=== PATIENT | male | born 1985 | race Caucasian/White ===

== ENCOUNTER 2022-05-12 21:16 | Emergency (ER) | payer SELFPAY ==
--- OUTSIDE RECORDS SUMMARY | 2022-05-12 21:19 | XMS REPORT | Continuity of Care Document ---
:1985 Author Organization [facility] t Address [address] [place] [address] [address] [place] [address] Care Team Providers Name Role Phone PCP, PATIENT DOES NOT HAVE A Primary Care Physician Unavaila ROWAN Kay Attending Clinician Unavailable Rowan Marino Attending Clinician ROWAN ROCK Admitting Clinician Unavailable Payers Payer Name Policy Type Policy Number Effective Date Expiration Date S ource ALL [employer] [id number] 2021 00:00:00 Problems Condition Condition Condition Status Onset Resolution Last Treating Co mments Source Name Details Category Date Date Treatment Clinician Date No known No known Disease Unive rs active active ity of problems problems [facility] Allergies, Adverse Reactions, Alerts Allergy Allergy Status Severity Reaction(s) Onset Inactive Treating Comm ents Source Name Type Date Date Clinician NO KNOWN Drug Active Univers ALLERGIE Class ity of S [facility] Social History Social Habit Start Date Stop Date Quantity Comments Source Exposure to Not sure [facility] SARS-CoV-2 (event) Medica l Branch Sex Assigned At [birth year] [facility] 00:00:00 00:00:00 [facility] Smoking Status Start Date Stop Date Source Unknown if ever smoked [facility] Medications Ordered Filled Start Stop Current Ordering Indication Dosage Frequency Signature Comments Components Source Medication Medication Date Date Medication? Clinician (SIG) Name Name methocarbam No 500mg 500 mg, U nivers oL 09-10 Oral, ity of (ROBAXIN) 20:00: 18:54 [place]CE, [place] 500 [place] :00 dose, On Medic al mg [place] 09/10/21 at 1400, Routine HYDROcodone 2021- No 1{tbl} 1 tablet, Univers -acetaminop 09-10 Oral, ity of hen (NORCO 20:00: 18:54 ONCE, 1 Gokul as 5) 5-325 mg 00 :00 dose, On Medi willis tablet 1 [place] tablet 09/10/21 at 1400, JONATHON methocarbam Yes [id number] 500mg Take 1 Univers oL 500 mg - tablet by ity o f tablet 00:00: mouth 4 [place] 00 (four) Medical times Branch daily as needed for Pain (scale 4-6). naproxen Yes [id number] 500mg Take 1 Un jennifer (NAPROSYN) -23 tablet by ity of 500 mg 00:00: mouth 2 [place] tablet 00 (two) Medical times Branch daily with meals. traMADoL 50 Yes [id number] 50mg Take 1 Univ ers mg tablet - tablet by ity o f 00:00: mouth [place] 00 every 6 Medical (six) Branch hours as needed for Pain (scale 7-10). Indication s: acute pain Vital Signs Vital Name Observation Time Observation Value Comments Source Systolic blood 2021-09-10 21:26:16 140 mm[Hg] [facility] Diastolic blood 2021-09-10 21:26:16 66 mm[Hg] [facility] Heart rate 2021-09-10 21:26:16 67 /min [facility] Respiratory rate 2021-09-10 21:26:16 15 /min [facility] Oxygen saturation in 2021-09-10 21:26:16 100 /min [facility] Arterial blood by [facility] Pulse oximetry Branch Body temperature 2021-09-10 17:55:00 36.83 [place] [facility] Body weight 2021-09-10 17:55:00 79.379 kg [facility] Procedures Procedure Date / Time Performed Performing Clinician Yanni e XR CERVICAL SPINE 2 2021-09-10 20:32:27 Rowan Rock [facility] VW [facility] Branch XR SHOULDER 2+ VW 2021-09-10 20:32:27 Rowan Rock [facility] NOTICE OF PRIVACY 2021-09-10 17:48:40 Doctor Unassigned, No Univ [facility] Name Medical Branch CONSENT/REFUSAL FOR 2021-09-10 17:48:27 [facility] Name Medical Branch TREATMENT Encounters Start End Encounter Admission Attending Care Care Encounter Source Date/Time Date/Time Type Type Clinicians Facility Department ID 2021-09-10 2021-09-10 Emergency X WILLIAM ROCK ERT [id number] Univers 11:58:00 15:30:00 ROWAN reynolds [facility] 2021-09-10 2021-09-10 Emergency WILLIAM Rock [id number] Univers 11:58:00 15:30:00 Rowan Mathews CORDELL [id number] i [facility] [id number] [facility] [id number] [facility] 084 Branch Results This patient has no known results.
[2022-05-12] MEDS ORDERED: ASPIRIN 81 MG CHEWABLE TABLET ONE (21:53)
--- NOTE | 2022-05-12 22:03 | RAD REPORT ---
EXAM DESCRIPTION: RAD - Chest Single View - 05/12/2022 9:46 pm CLINICAL HISTORY: CHEST PAIN Chest pain. COMPARISON: No comparisons FINDINGS: Portable technique limits examination quality. The lungs are grossly clear. The heart is normal in size. No displaced fractures.Mild thoracic dextro scoliosis. IMPRESSION: No acute intrathoracic process suspected.
[2022-05-12 22:18] LABS: Hematocrit 42.8 % (39.6-49.0); Lymphocytes % 34.4 % (15.3-44.8); MCV 91.1 fL (80-100); MPV 7.6 fL (7.6-11.3)
[2022-05-12 22:25] LABS: Potassium 4.1 mmol/L (3.5-5.1); Thyroid Stimulating Hormone 1.69 uIU/mL (0.360-3.740); Troponin High Sensitivity 3.6 pg/mL (<58.9)
--- NOTE | 2022-05-12 22:41 | ER ---
Nurse's Notes [facility] Name: Reed Og Age: 36 yrs Sex: Male : 1985 Arrival Date: 05/12/2022 Time: 21:19 Bed 2 Private MD: Diagnosis: Elevated blood pressure reading;Intermittent palpitations;Episodic lightheadedness;Medication non-compliance;Chest pressure Presentation: 05/12 21:21 Chief complaint: Intermittent dizziness and headache x 1 week, palpitations and chest hb pressure x 2 days. Has not taken his HTN medication in several months. Coronavirus screen: At this time, the client does not indicate any symptoms associated with coronavirus-19. Ebola Screen: No symptoms or risks identified at this time. Risk Assessment: Do you want to hurt yourself or someone else? Patient reports no desire to harm self or others. Onset of symptoms was May 06, 2022. 21:21 Method Of Arrival: Ambulatory hb 21:21 Acuity: CACHORRO 3 hb 22:01 Initial Sepsis Screen: Does the patient meet any 2 criteria? No. Patient's initial aa9 sepsis screen is negative. Does the patient have a suspected source of infection? No. Patient's initial sepsis screen is negative. Historical: - Allergies: 21:23 No Known Allergies; hb - PMHx: 21:23 Hypertensive disorder; hb - Immunization history:: Adult Immunizations up to date. - Social history:: Smoking status: Patient/guardian denies using tobacco. Screenin:00 Abuse screen: Denies threats or abuse. Denies injuries from another. Nutritional aa9 screening: No deficits noted. Tuberculosis screening: No symptoms or risk factors identified. Fall Risk None identified. Assessment: 21:35 General: Appears uncomfortable, Behavior is calm, cooperative. Pain: Denies pain. aa9 Neuro: Level of Consciousness is awake, alert, obeys commands, Oriented to person, place, time, situation, Reports dizziness. Cardiovascular: Patient's skin is warm and dry. Respiratory: Airway is patent Respiratory effort is even, unlabored, Respiratory pattern is regular. 22:40 Reassessment: Patient is alert, oriented x 3, equal unlabored respirations, skin aa9 warm/dry/pink. General: Appears in no apparent distress. comfortable, Behavior is calm, cooperative, quiet. Pain: Denies pain. Neuro: Level of Consciousness is awake, alert, obeys commands, Oriented to person, place, time, situation. Cardiovascular: Patient's skin is warm and dry. Respiratory: Airway is patent Respiratory effort is even, unlabored, Respiratory pattern is regular, symmetrical. Vital Signs: 21:21 BP 132 / 78; Pulse 59; Resp 16; Temp 98.1; Pulse Ox 100% on R/A; Weight 72.57 kg; hb Height 5 ft. 9 in. (175.26 cm); Pain 3/10; 21:30 BP 127 / 79; Pulse 58; Resp 16 S; Pulse Ox 99% on R/A; aa9 21:45 BP 114 / 73; Pulse 63; Resp 16 S; Pulse Ox 99% on R/A; Pain 0/10; aa9 22:15 BP 115 / 76; Pulse 54; Resp 16 S; Pulse Ox 98% on R/A; aa9 22:48 BP 115 / 71; Pulse 56; Resp 16 S; Pulse Ox 98% on R/A; aa9 21:21 Body Mass Index 23.63 (72.57 kg, 175.26 cm) hb ED Course: 21:19 Patient arrived in ED. mr 21:19 Bailey Nolen MD is Attending Physician. sd2 21:23 Triage completed. hb 21:23 Arm band placed on. hb 21:24 Hermelindo Daly, RN is Primary Nurse. as6 21:40 Inserted saline lock: 20 gauge in left antecubital area, using aseptic technique. Blood aa9 collected. 21:47 XRAY Chest (1 view) In Process Unspecified. EDMS 21:59 Patient has correct armband on for positive identification. Side rails up X2. Adult w/ aa9 patient. Door closed. 22:48 No provider procedures requiring assistance completed. aa9 22:48 IV discontinued, intact, bleeding controlled, No redness/swelling at site. Pressure aa9 dressing applied. Administered Medications: 21:55 Drug: Aspirin Chewable Tablet 324 mg Route: PO; aa9 22:49 Follow up: Response: No adverse reaction aa9 Medication: 22:01 VIS not applicable for this client. aa9 Outcome: 22:41 Discharge ordered by . sd2 22:48 Discharged to home ambulatory, with family. aa9 22:48 Condition: stable 22:48 Discharge instructions given to patient, significant other, Instructed on discharge instructions, follow up and referral plans. Demonstrated understanding of instructions, follow-up care. 22:51 Patient left the ED. aa9 Signatures: Dispatcher [employer] Melissa HernandezJanette, RN RN Hermelindo Daly, RN RN as6 Bailey Nolen MD MD sd2 Leslie Rodrigues RN RN aa9 Corrections: (The following items were deleted from the chart) :23 21:23 PMHx: Hypothyroidism; hb hb 22: 21:56 General: Appears uncomfortable, Behavior is calm, cooperative, aa9 aa9 : 21:56 Pain: Denies pain. aa9 aa9 : 21:56 Cardiovascular: Patient's skin is warm and dry. aa9 aa9 22: 21:56 Respiratory: Airway is patent Respiratory effort is even, unlabored, Respiratory aa9 pattern is regular, aa9 : 21:56 Neuro: Level of Consciousness is awake, alert, obeys commands, Oriented to aa9 person, place, time, situation, Reports dizziness, aa9
--- NOTE | 2022-05-12 22:41 | EDPHYS ---
Physician Documentation [facility] Name: Reed Og Age: 36 yrs Sex: Male : 1985 Arrival Date: 05/12/2022 Time: 21:19 Bed 2 Private MD: ED Physician Bailey Nolen HPI: 05/12 21:32 This 36 yrs old Male presents to ER via Ambulatory with complaints of Palpitations, sd2 High Blood Pressure, Dizziness. 21:32 36-year-old male with a history of hypertension and hyperlipidemia presents with chief sd2 complaint of high blood pressure and chest pressure. He reports he has been off of his blood pressure medications for many months due to moving here from [place] and running out of his medications. He reports he is actually planning on moving back to [place] this upcoming week but wanted to make sure everything was okay due to starting to have this chest pressure with intermittent episodes of palpitations and lightheadedness over the past week. He reports his blood pressure has been as high as the high 150s systolic. His heart rate has also ranged up to 110. He also reports increased stress at home recently. No prior cardiac history, recent travel or leg edema. No prior history of blood clots.. Historical: - Allergies: 21:23 No Known Allergies; hb - PMHx: 21:23 Hypertensive disorder; hb - Immunization history:: Adult Immunizations up to date. - Social history:: Smoking status: Patient/guardian denies using tobacco. ROS: 21:32 Constitutional: Negative for fever, chills, and weight loss, Eyes: Negative for injury, sd2 pain, redness, and discharge, Cardiovascular: Negative for chest pain and edema. Positive for chest pressure and palpitations. Respiratory: Positive for shortness of breath, Negative for cough, wheezing. Abdomen/GI: Negative for abdominal pain, nausea, vomiting, diarrhea. MS/Extremity: Negative for injury and deformity, Skin: Negative for injury, rash, and discoloration, Neuro: Negative for headache, numbness and tingling. Exam: 21:32 Constitutional: This is a well developed, well nourished patient who is awake, alert, sd2 and in no acute distress. Head/Face: Normocephalic, atraumatic. Eyes: EOMI, normal conjunctiva bilaterally Chest/axilla: Normal chest wall appearance and motion. Nontender with no deformity. Cardiovascular: Regular rate and rhythm with a normal S1 and S2. No gallops, murmurs, or rubs. 2+ distal pulses. Respiratory: Lungs have equal breath sounds bilaterally, clear to auscultation and percussion. No rales, rhonchi or wheezes noted. No increased work of breathing, no retractions or nasal flaring. Abdomen/GI: Soft, non-tender, with normal bowel sounds. No guarding or rebound. No evidence of tenderness throughout. Skin: Warm, dry with normal turgor. Normal color with no rashes, no lesions, and no evidence of cellulitis. MS/ Extremity: Pulses equal, no cyanosis. Neurovascular intact. Full, normal range of motion. Ambulatory without difficulty. Psych: Awake, alert, with orientation to person, place and time. Behavior, mood, and affect are within normal limits. 21:36 ECG was reviewed by the Attending Physician. Sinus bradycardia, rate 53, no STEMI sd2 criteria or ST-T wave changes Vital Signs: 21:21 BP 132 / 78; Pulse 59; Resp 16; Temp 98.1; Pulse Ox 100% on R/A; Weight 72.57 kg; hb Height 5 ft. 9 in. (175.26 cm); Pain 3/10; 21:30 BP 127 / 79; Pulse 58; Resp 16 S; Pulse Ox 99% on R/A; aa9 21:45 BP 114 / 73; Pulse 63; Resp 16 S; Pulse Ox 99% on R/A; Pain 0/10; aa9 22:15 BP 115 / 76; Pulse 54; Resp 16 S; Pulse Ox 98% on R/A; aa9 22:48 BP 115 / 71; Pulse 56; Resp 16 S; Pulse Ox 98% on R/A; aa9 21:21 Body Mass Index 23.63 (72.57 kg, 175.26 cm) hb MDM: 21:24 Patient medically screened. sd2 21:32 Differential diagnosis: Differential diagnosis includes but is not limited to: ACS, sd2 DVT/PE, pneumothorax, dissection, musculoskeletal, anxiety, anemia, electrolyte abnormality, pneumonia, CHF, COPD among others. Data reviewed: vital signs, nurses notes. 22:37 Data reviewed: lab test result(s), radiologic studies. Counseling: I had a detailed sd2 discussion with the patient and/or guardian regarding: the historical points, exam findings, and any diagnostic results supporting the discharge/admit diagnosis, lab results, radiology results, the need for outpatient follow up, to return to the emergency department if symptoms worsen or persist or if there are any questions or concerns that arise at home. Medical screen evaluation completed. [facility] emergency medical condition absent. ED course: Labs and imaging reviewed. Trop neg. EKG with no ischemic changes. Thyroid function studies normal. No events on telemetry. BP has remained well controlled throughout stay. Pt with minimal symptoms. Low risk for ACS. I am very reluctant to restart the patient's BP medications at this time as he was on a fairly high dose of Losartan at 50 mg. BP currently 115/76. No indication for BP treatment at this time. Concern if patient is restarted on medication, he will bottom out his pressure. Planning to drive back to [place] this week and followup with his doctors there. Advised pt to keep daily BP log and follow up. Pt and in agreement and verbalize understanding of discharge plan and strict return precautions. . 05/12 21:32 Order name: Basic Metabolic Panel; Complete Time: 22:31 sd05/12 21:32 Order name: CBC with Diff; Complete Time: 22:31 05/12 21:32 Order name: Magnesium; Complete Time: 22:31 05/12 21:32 Order name: NT PRO-BNP; Complete Time: 22:31 05/12 21:32 Order name: Troponin HS; Complete Time: 22:31 05/12 21:32 Order name: TSH; Complete Time: 22:31 05/12 21:32 Order name: XRAY Chest (1 view); Complete Time: 22:14 sd05/12 21:32 Order name: EKG; Complete Time: 21:33 sd05/12 21:32 Order name: Cardiac monitoring; Complete Time: 21:41 05/12 21:32 Order name: EKG - Nurse/Tech; Complete Time: 21:41 05/12 21:32 Order name: IV Saline Lock; Complete Time: 21:55 sd05/12 21:32 Order name: Labs collected and sent; Complete Time: 21:55 05/12 21:32 Order name: T4 Free; Complete Time: 22:31 sd2 05/12 21:32 Order name: O2 Per Protocol; Complete Time: 21:41 sd2 05/12 21:32 Order name: O2 Sat Monitoring; Complete Time: 21:41 sd2 Administered Medications: 21:55 Drug: Aspirin Chewable Tablet 324 mg Route: PO; aa9 22:49 Follow up: Response: No adverse reaction aa9 Disposition Summary: 05/12/22 22:41 Discharge Ordered Location: Home sd2 Problem: new sd2 Symptoms: have improved sd2 Condition: Stable sd2 Diagnosis - Elevated blood pressure reading sd2 - Intermittent palpitations sd2 - Episodic lightheadedness sd2 - Medication non-compliance sd2 - Chest pressure sd2 Followup: sd2 - With: Private Physician - When: 2 - 3 days - Reason: Recheck today's complaints, Continuance of care, Re-evaluation by your physician Discharge Instructions: - Discharge Summary Sheet sd2 - Nonspecific Chest Pain, Adult sd2 - Hypertension, Adult sd2 - Palpitations sd2 Forms: - Medication Reconciliation Form sd2 - Thank You Letter sd2 - Antibiotic Education sd2 - Prescription Opioid Use sd2 Signatures: Dispatcher [employer] EDJanette Hyman RN RN hb Bailey Nolen MD MD sd2 Leslie Rodrigues RN RN aa9 Corrections: (The following items were deleted from the chart) 21:23 21:23 PMHx: Hypothyroidism; hb hb
[2022-05-14 10:08] VITALS: TEMP 98.1
[2022-05-14 10:18] VITALS: O2SAT 98
[2022-05-14 10:20] VITALS: BP 115/71
--- NOTE | 2022-05-14 14:10 | EKG ---
Test Date: 2022-05-12 Test Time: 21:37:35 Territory Account Executive: BRIAN MEASUREMENT RESULTS: Intervals: Rate: 53 ME: 150 QRSD: 96 QT: 400 QTc: 375 Elaine: P: 69 ME: 150 QRS: 69 T: 58 INTERPRETIVE STATEMENTS: Sinus bradycardia Otherwise normal ECG No previous ECG available for comparison Electronically Signed On 05-14-22 14:08:39 CDT by Efren Ambriz
== END 2022-05-12 22:51 | disposition home or self-care (01) ==
LOC: ER 21:16
DX: R00.2 Palpitations (principal); I10 Essential (primary) hypertension; R07.89 Other chest pain; R42 Dizziness and giddiness; Z91.14 Patient's other noncompliance with medication regimen
CPT/HCPCS: 36415; 71045; 80048; 83735; 83880; 84439; 84443; 84484; 85025; 93005; 99284